=== PATIENT | male | born 1975 | race American Indian/Alaskan Native ===

== ENCOUNTER 2017-02-14 10:43 | Emergency (ER) | payer OTHER ==
[2017-02-14 12:24] VITALS: BP 147/95
--- NOTE | 2017-02-14 15:09 | Emergency Department Report ---
ED Lower Extremity HPI - General Chief Complaint: Extremity Injury, Lower Stated Complaint: BILAT KNEE, BACK PAIN, GENERAL SICKNESS Time Seen by Provider: 02/14/17 15:06 Source: patient Mode of arrival: Ambulatory Limitations: No Limitations - History of Present Illness MD Complaint: knee injury -: Sudden Type of Injury: blunt Place: home Severity: mild Improves With: nothing Worsens With: nothing Context: fall Associated Symptoms: other (pt reports being homeless and cold. ) - Related Data Allergies Allergy/AdvReac Type Severity Reaction Status Date / Time No Known Allergies Allergy Verified 12/21/14 22:28 ED Review of Systems ROS: Stated complaint: BILAT KNEE, BACK PAIN, GENERAL SICKNESS Other details as noted in HPI Comment: All other systems reviewed and negative Musculoskeletal: back pain, other (b knee pain) ED Past Medical Hx - Past Medical History Previous Medical History?: No - Surgical History Past Surgical History?: Yes Additional Surgical History: Right Knee repair, Left knee Arthoscopy - Social History Smoking Status: Current Every Day Smoker Substance Use Type: Alcohol, Cocaine, Marijuana ED Physical Exam - General Limitations: No Limitations General appearance: alert - Head Head exam: Present: atraumatic - Eye Eye exam: Present: PERRL - ENT ENT exam: Present: mucous membranes moist - Neck Neck exam: Present: normal inspection - Respiratory Respiratory exam: Present: normal lung sounds bilaterally - Cardiovascular Cardiovascular Exam: Present: regular rate - GI/Abdominal GI/Abdominal exam: Present: soft - Back Exam Back exam: Present: normal inspection, full ROM - Neurological Exam Neurological exam: Present: alert, oriented X3 - Psychiatric Psychiatric exam: Present: normal affect, normal mood - Skin Skin exam: Present: warm, dry, intact ED Course Vital Signs 02/14/17 12:21 Temperature 97.9 F Pulse Rate 95 H Blood Pressure 147/95 O2 Sat by Pulse 100 Oximetry - Reevaluation(s) Reevaluation #1: 02/14/17 15:53 to er prasad aragon today where he says he hurt his knees and lower back then he added he feels like he has the flu then added he is homeless and cold and has no where to go. he was found sleeping quietly in the fast track waiting room. vss nad non ill non toxic no fever ED Lower Extremity MDM - Radiology Data Radiology results: report reviewed, image reviewed - Medical Decision Making see note - Differential Diagnosis ro knee fx/ meniscus injury Critical care attestation.: If time is entered above; I have spent that time in minutes in the direct care of this critically ill patient, excluding procedure time. ED Disposition Clinical Impression: Knee pain Disposition: - TO HOME OR SELFCARE Is pt being admited?: No Does the pt Need Aspirin: No Condition: Stable Instructions: Arthralgia (ED) Additional Instructions: rest over the counter motrin or tylenol for pain hydrate well keep warm Referrals: PRIMARY MD ANAT [Primary Care Provider] - 3-5 Days YASMIN CAST MD [Staff Physician] - 3-5 Days [facility] [Outside] - 3-5 Days Time of Disposition: 15:49
--- NOTE | 2017-02-14 17:15 | XRay Report ---
FINAL REPORT EXAM: XR KNEE BILAT 3V HISTORY: pain sp fall TECHNIQUE: Bilateral knees two views left and two views right PRIORS: None. FINDINGS: No fracture is identified. No dislocation seen. No evidence of joint effusion. Patella demonstrates normal positioning. No acute bony abnormality identified. There are posterior soft tissue calcifications noted bilaterally IMPRESSION: No acute findings in the knees
== END 2017-02-14 17:16 | disposition home or self-care (01) ==
LOC: ED 10:43
DX: M25.561 Pain in right knee (principal); M25.562 Pain in left knee; F14.10 Cocaine abuse, uncomplicated; F12.10 Cannabis abuse, uncomplicated; F17.200 Nicotine dependence, unspecified, uncomplicated; Z98.890 Other specified postprocedural states
CPT/HCPCS: 99283

== ENCOUNTER 2017-02-15 01:15 | Emergency (ER) | payer OTHER ==
[2017-02-15 05:46] VITALS: BP 137/79
--- NOTE | 2017-02-15 11:15 | XRay Report ---
XRAY RIGHT FOOT THREE VIEWS: 02/15/17 01:15:00 CLINICAL: Right foot pain. FINDINGS: Hallux valgus deformity. No fracture or dislocation. Mild arthritis at the first MTP joint. No erosions. Normal soft tissues. IMPRESSION: Mild arthritis and hallux valgus deformity.
== END 2017-02-15 08:01 | disposition left against medical advice (07) ==
LOC: ED 01:15
DX: M79.671 Pain in right foot (principal); Z53.21 Procedure and treatment not carried out due to patient leaving prior to being seen by health care provider

== ENCOUNTER 2017-02-22 02:58 | Emergency (ER) | payer OTHER ==
[2017-02-22 04:09] VITALS: BP 129/93
--- NOTE | 2017-02-22 06:02 | Emergency Department Report ---
ED Lower Extremity HPI - General Chief Complaint: Extremity Injury, Lower Stated Complaint: RT FOOT PAIN Time Seen by Provider: 02/22/17 06:00 Source: patient Mode of arrival: Ambulatory Limitations: No Limitations - History of Present Illness Initial Comments: 41-year-old male past medical history schizophrenia, osteoarthritis feet, bunions presents with complaint of acute on chronic bilateral foot pain. Patient states he is homeless and stands and walks for prolonged periods of time. Patient states that his feet were aching which is why he came to the ED. Patient also states that it is cold outside due to weather and he was looking for a warm place to rest. Patient is awake alert and oriented 3 denies any trauma to feet and is ambulatory. Denies any fevers or chills. States he has not been taking any medicines for pain. States he was here for similar symptoms in both feet at the end of January MD Complaint: other (chronic bilateral foot pain) -: year(s) Injury: Foot: Right, Left Place: street/outdoors Severity: moderate Severity scale (0 -10): 4 Improves With: rest Context: walking Associated Symptoms: ambulatory - Related Data Previous Rx's Medication Instructions Recorded Last Taken Type Naproxen 500 mg PO BID PRN #30 tablet 02/22/17 Unknown Rx Allergies Allergy/AdvReac Type Severity Reaction Status Date / Time No Known Allergies Allergy Verified 12/21/14 22:28 ED Review of Systems ROS: Stated complaint: RT FOOT PAIN Other details as noted in HPI Constitutional: denies: chills, fever Eyes: denies: eye pain, eye discharge, vision change ENT: denies: ear pain, throat pain Respiratory: denies: cough, shortness of breath, wheezing Cardiovascular: denies: chest pain, palpitations Endocrine: no symptoms reported Gastrointestinal: denies: abdominal pain, nausea, diarrhea Genitourinary: denies: urgency, dysuria Musculoskeletal: as per HPI (hx fo chronic foot pain both feet). denies: back pain, joint swelling, arthralgia Skin: denies: rash, lesions Neurological: denies: headache, weakness, paresthesias Psychiatric: denies: anxiety, depression Hematological/Lymphatic: denies: easy bleeding, easy bruising ED Past Medical Hx - Past Medical History Hx Psychiatric Treatment: Yes (schizophrenia) Additional medical history: Bunions, Callous - Surgical History Additional Surgical History: Right Knee repair, Left knee Arthoscopy - Social History Smoking Status: Current Every Day Smoker - Medications Home Medications: Home Medications Medication Instructions Recorded Confirmed Last Taken Type Naproxen 500 mg PO BID PRN #30 tablet 02/22/17 Unknown Rx ED Physical Exam - General Limitations: No Limitations General appearance: alert, in no apparent distress - Head Head exam: Present: atraumatic, normocephalic - Eye Eye exam: Present: normal appearance, PERRL, EOMI - ENT ENT exam: Present: mucous membranes moist - Neck Neck exam: Present: normal inspection - Respiratory Respiratory exam: Present: normal lung sounds bilaterally. Absent: respiratory distress - Cardiovascular Cardiovascular Exam: Present: regular rate, normal rhythm. Absent: systolic murmur, diastolic murmur, rubs, gallop - GI/Abdominal GI/Abdominal exam: Present: soft, normal bowel sounds - Rectal Rectal exam: Present: deferred - Extremities Exam Extremities exam: Present: normal inspection, normal capillary refill (distal capillary refill toes on both feet fully intact, distal dorsalis pedis and posterior tibial pulses intact bilaterally. There are no signs of lower extremity infection cellulitis or erythema on clinical exam. Range of motion bilateral feet and ankles clinically intact. Patient is ambulatory without assistance.) - Back Exam Back exam: Present: normal inspection - Neurological Exam Neurological exam: Present: alert, oriented X3, CN II-XII intact, normal gait - Psychiatric Psychiatric exam: Present: normal affect, normal mood - Skin Skin exam: Present: warm, dry, intact, normal color. Absent: rash ED Course Vital Signs 02/22/17 04:03 Temperature 98.9 F Pulse Rate 82 Respiratory 19 Rate Blood Pressure 129/93 O2 Sat by Pulse 100 Oximetry ED Lower Extremity MDM - Medical Decision Making A/P: Chronic bilateral foot pain 1-patient is ambulatory no clinical signs of infection on inspection of both feet distal pulses and sensation intact bilaterally. No indication for acute imaging is patient is fully ambulatory 2-naproxen when necessary for pain 3-I gave patient information for primary care follow-up and also gave him a list of homeless shelters in the area [email or web address] Critical care attestation.: If time is entered above; I have spent that time in minutes in the direct care of this critically ill patient, excluding procedure time. ED Disposition Clinical Impression: Chronic foot pain Qualifiers: Laterality: unspecified laterality Qualified Code(s): M79.673 - Pain in unspecified foot; G89.29 - Other chronic pain; G89.29 - Other chronic pain Disposition: TO HOME OR SELFCARE Is pt being admited?: No Does the pt Need Aspirin: No Condition: Stable Instructions: Arthralgia (ED) Prescriptions: Naproxen 500 mg PO BID PRN #30 tablet PRN Reason: Pain Referrals: SABAS KRUSE MD [Primary Care Provider] - 3-5 Days Time of Disposition: 06:08
== END 2017-02-22 06:18 | disposition home or self-care (01) ==
LOC: ED 02:58
DX: M79.671 Pain in right foot (principal); M79.672 Pain in left foot; G89.29 Other chronic pain; F20.9 Schizophrenia, unspecified; Z59.0 Homelessness; F17.200 Nicotine dependence, unspecified, uncomplicated
CPT/HCPCS: 99282

== ENCOUNTER 2017-02-23 14:18 | Emergency (ER) | payer OTHER ==
[2017-02-23 15:22] LABS: Basophils % (Auto) 0.3 % (0.0-1.8); Eosinophils # (Auto) 0.1 K/mm3 (0.0-0.4); Hematocrit 46.5 % (35.5-45.6); Hemoglobin 15.6 gm/dl (11.8-15.2); Lymphocytes # (Auto) 0.3 K/mm3 (1.2-5.4); Lymphocytes % (Auto) 9.7 % (13.4-35.0); Mean Corpuscular HGB Conc 34 % (32-34); Mean Corpuscular Hemoglobin 30 pg (28-32); Mean Corpuscular Volume 90 fl (84-94); Monocytes # (Auto) 0.2 K/mm3 (0.0-0.8); Monocytes % (Auto) 7.2 % (0.0-7.3); Platelet Count 158 K/mm3 (140-440); Red Blood Count 5.16 M/mm3 (3.65-5.03); Red Cell Distribution Width 13.3 % (13.2-15.2)
[2017-02-23 15:42] LABS: Alanine Aminotransferase 21 units/L (7-56); Albumin 4.3 g/dL (3.9-5); BUN/Creatinine Ratio 11; Blood Urea Nitrogen 11 mg/dL (9-20); Calcium 9.2 mg/dL (8.4-10.2); Hemolysis Index 4
--- NOTE | 2017-02-23 15:47 | Cat Scan Report ---
FINAL REPORT EXAM: CT HEAD/BRAIN WO CON HISTORY: Double Vision TECHNIQUE: CT head without contrast PRIORS: None. FINDINGS: No acute intra-axial or extra-axial hemorrhage is identified. There is no evidence of midline shift or mass effect. The ventricles and sulci are within normal limits. Lamas-white matter differentiation is intact. No acute parenchymal abnormalities seen. Bony calvarium is grossly intact. Visualized portions of the mastoids and paranasal sinuses are unremarkable. IMPRESSION: Negative CT head
--- NOTE | 2017-02-23 16:11 | XRay Report ---
FINAL REPORT EXAM: XR CHEST ROUTINE 2V HISTORY: Chest Pain TECHNIQUE: Two view chest PA and lateral PRIORS: No prior studies available for comparison FINDINGS: Cardiac and mediastinal contours are unremarkable. No focal pulmonary infiltrate is identified. No pleural fluid collection seen. Pulmonary vasculature is unremarkable. IMPRESSION: Negative two-view chest
[2017-02-23 16:48] LABS: Benzodiazepines Screen,Urine PRESUMPTIVE NEGATIVE; Cocaine Screen,Urine PRESUMPTIVE NEGATIVE; Methadone Screen,Urine PRESUMPTIVE NEGATIVE; Opiate Screen,Urine PRESUMPTIVE NEGATIVE
[2017-02-23 16:54] LABS: Amphetamine Screen,Urine PRESUMPTIVE POSITIVE; Cannabinoid Screen,Urine PRESUMPTIVE POSITIVE
--- NOTE | 2017-02-23 22:36 | Emergency Department Report ---
Eye Injury/Foreign Body - HPI Duration: Today Eye Location: Bilateral Severity: Mild Eye Symptoms: Eye Pain: No, Blurred Vision: Yes (double vision), Eye Redness: No , Grinding/Hammering Metal: No, Used Eye Protection: No, Contact Lens Use: No, Recalls Injury: No, Photophobia: No Other History: Patient is a 41-year-old male who is presenting with double vision with blurriness. Patient states that he got a cigarette from someone else and after smoking the cigarette he started feeling weird. Patient states the vision started after this. He asked the person didn't the cigarette contain something other than tobacco and was told no. Patient does admit to marijuana use occasionally but states he has not used any other drugs. Patient is denying any chest pain shortness of breath nausea vomiting diarrhea at this time. Patient does states he has some chronic low back pain. He is complaining of this pain this is changed from previous back pain he's had the past. ED Review of Systems ROS: Stated complaint: ABDOMINAL PAIN/PROBLEM SEEING Other details as noted in HPI Comment: All other systems reviewed and negative ED Past Medical Hx - Past Medical History Previous Medical History?: No Hx Psychiatric Treatment: Yes (schizophrenia) Additional medical history: Bunions, Callous - Surgical History Past Surgical History?: Yes Hx Appendectomy: No Additional Surgical History: Right Knee repair, Left knee Arthoscopy - Social History Smoking Status: Current Every Day Smoker Substance Use Type: Alcohol, Marijuana - Medications Home Medications: Home Medications Medication Instructions Recorded Confirmed Last Taken Type Naproxen 500 mg PO BID PRN #30 tablet 02/22/17 Unknown Rx Eye Injury Exam - Exam General: Vital signs noted. No distress. Alert and acting appropriately. Cardiovascular: S1-S2 no murmurs gallops or rubs Respiratory: Lungs clear to auscultation bilaterally Abdomen: Abdomen soft nontender nondistended with normal bowel sounds General: Patient is alert and oriented 3 in no acute distress. Patient is still slow to respond to questions and does appear intoxicated - Visual Acuity Bilateral Vision Acuity Degree: 20/40 Eye Exam: Both Injection, Both EOMI, Neither Chemosis, Neither Abnormal Pupil ED Course Vital Signs 02/23/17 02/23/17 14:51 22:09 Temperature 98.5 F 98.1 F Pulse Rate 82 68 Respiratory 14 18 Rate Blood Pressure 130/89 135/87 Blood Pressure 130/89 [Right] O2 Sat by Pulse 100 98 Oximetry ED Medical Decision Making - Lab Data Result diagrams: 02/23/17 15:07 02/23/17 15:07 Lab Results 02/23/17 02/23/17 02/23/17 Range/Units 15:07 15:07 15:07 WBC 2.9 L (4.5-11.0) K/mm3 RBC 5.16 H (3.65-5.03) M/mm3 Hgb 15.6 H (11.8-15.2) gm/dl Hct 46.5 H (35.5-45.6) % MCV 90 (84-94) fl MCH 30 (28-32) pg MCHC 34 (32-34) % RDW 13.3 (13.2-15.2) % Plt Count 158 (140-440) K/mm3 Lymph % (Auto) 9.7 L (13.4-35.0) % [place] % (Auto) 7.2 (0.0-7.3) % Eos % (Auto) 2.0 (0.0-4.3) % Baso % (Auto) 0.3 (0.0-1.8) % Lymph # 0.3 L (1.2-5.4) K/mm3 [place] # 0.2 (0.0-0.8) K/mm3 Eos # 0.1 (0.0-0.4) K/mm3 Baso # 0.0 (0.0-0.1) K/mm3 Seg Neutrophils % 80.8 H (40.0-70.0) % Seg Neutrophils # 2.4 (1.8-7.7) K/mm3 Sodium 135 L (137-145) mmol/L Potassium 4.4 (3.6-5.0) mmol/L Chloride 95.1 L (98-107) mmol/L Carbon Dioxide 26 (22-30) mmol/L Anion Gap 18 mmol/L BUN 11 (9-20) mg/dL Creatinine 1.0 (0.8-1.5) mg/dL Estimated GFR > 60 ml/min BUN/Creatinine Ratio 11 % Glucose 81 (75-100) mg/dL Calcium 9.2 (8.4-10.2) mg/dL Total Bilirubin 0.70 (0.1-1.2) mg/dL AST 25 (5-40) units/L ALT 21 (7-56) units/L Alkaline Phosphatase 44 (35-129) units/L Total Protein 7.7 (6.3-8.2) g/dL Albumin 4.3 (3.9-5) g/dL Albumin/Globulin Ratio 1.3 % Urine Opiates Screen Urine Methadone Screen Ur Barbiturates Screen Ur Phencyclidine Scrn Ur Amphetamines Screen U Benzodiazepines Scrn Urine Cocaine Screen U Marijuana (THC) Screen Drugs of Abuse Note Plasma/Serum Alcohol < 0.01 (0-0.07) gm% 02/23/17 Range/Units 16:12 WBC (4.5-11.0) K/mm3 RBC (3.65-5.03) M/mm3 Hgb (11.8-15.2) gm/dl Hct (35.5-45.6) % MCV (84-94) fl MCH (28-32) pg MCHC (32-34) % RDW (13.2-15.2) % Plt Count (140-440) K/mm3 Lymph % (Auto) (13.4-35.0) % [place] % (Auto) (0.0-7.3) % Eos % (Auto) (0.0-4.3) % Baso % (Auto) (0.0-1.8) % Lymph # (1.2-5.4) K/mm3 [place] # (0.0-0.8) K/mm3 Eos # (0.0-0.4) K/mm3 Baso # (0.0-0.1) K/mm3 Seg Neutrophils % (40.0-70.0) % Seg Neutrophils # (1.8-7.7) K/mm3 Sodium (137-145) mmol/L Potassium (3.6-5.0) mmol/L Chloride (98-107) mmol/L Carbon Dioxide (22-30) mmol/L Anion Gap mmol/L BUN (9-20) mg/dL Creatinine (0.8-1.5) mg/dL Estimated GFR ml/min BUN/Creatinine Ratio % Glucose (75-100) mg/dL Calcium (8.4-10.2) mg/dL Total Bilirubin (0.1-1.2) mg/dL AST (5-40) units/L ALT (7-56) units/L Alkaline Phosphatase (35-129) units/L Total Protein (6.3-8.2) g/dL Albumin (3.9-5) g/dL Albumin/Globulin Ratio % Urine Opiates Screen Presumptive negative Urine Methadone Screen Presumptive negative Ur Barbiturates Screen Presumptive negative Ur Phencyclidine Scrn Presumptive negative Ur Amphetamines Screen Presumptive positive U Benzodiazepines Scrn Presumptive negative Urine Cocaine Screen Presumptive negative U Marijuana (THC) Screen Presumptive positive Drugs of Abuse Note Disclamer Plasma/Serum Alcohol (0-0.07) gm% - Medical Decision Making Patient is a 41-year-old male with a past medical history of schizophrenia who is presenting with blurry vision and not feeling normal. Patient did test positive for marijuana as well as amphetamines and this is most likely the cause of the patient's symptoms. Patient be given Xanax and will be discharged home Critical care attestation.: If time is entered above; I have spent that time in minutes in the direct care of this critically ill patient, excluding procedure time. ED Disposition Clinical Impression: Amphetamine adverse reaction Qualifiers: Encounter type: initial encounter Qualified Code(s): T43.625A - Adverse effect of amphetamines, initial encounter Disposition: DC-01 TO HOME OR SELFCARE Is pt being admited?: No Does the pt Need Aspirin: No Condition: Fair Referrals: PRIMARY CARE, [Primary Care Provider] - 3-5 Days
[2017-02-23] MEDS ORDERED: XANAX PO ONE (22:37)
[2017-02-23 23:04] VITALS: BP 120/76
== END 2017-02-23 23:19 | disposition home or self-care (01) ==
LOC: ED 14:18
DX: H53.8 Other visual disturbances (principal); H53.2 Diplopia; H57.13 Ocular pain, bilateral; T43.625A Adverse effect of amphetamines, initial encounter; F20.9 Schizophrenia, unspecified; F17.210 Nicotine dependence, cigarettes, uncomplicated; F12.10 Cannabis abuse, uncomplicated; Z79.899 Other long term (current) drug therapy; Y93.89 Activity, other specified; Y99.8 Other external cause status; Y92.89 Other specified places as the place of occurrence of the external cause
CPT/HCPCS: 36415; 70450; 71046; 80053; 80307; 85025; 99284; G0480; 80320

== ENCOUNTER 2017-02-25 08:09 | Emergency (ER) | payer SELFPAY ==
[2017-02-25 09:50] LABS: Bilirubin,Urine NEG (Negative); Blood,Urine NEG (Negative); Calcium Oxalate Crystals,Urine 3+; Color,Urine Yellow (Yellow); Mucus,Urine FEW /HPF; Nitrite,Urine NEG (Negative); Protein,Urine <15 mg/dL mg/dL (Negative)
[2017-02-25 10:19] LABS: Basophils % (Auto) 0.3 % (0.0-1.8); Eosinophils # (Auto) 0.1 K/mm3 (0.0-0.4); Eosinophils % (Auto) 1.8 % (0.0-4.3); Hematocrit 44.6 % (35.5-45.6); Lymphocytes # (Auto) 0.5 K/mm3 (1.2-5.4); Lymphocytes % (Auto) 11.8 % (13.4-35.0); Mean Corpuscular HGB Conc 34 % (32-34); Mean Corpuscular Hemoglobin 30 pg (28-32); Mean Corpuscular Volume 89 fl (84-94); Monocytes # (Auto) 0.4 K/mm3 (0.0-0.8); Monocytes % (Auto) 8.8 % (0.0-7.3); Platelet Count 168 K/mm3 (140-440); Red Cell Distribution Width 13.2 % (13.2-15.2)
[2017-02-25 10:35] LABS: Alanine Aminotransferase 23 units/L (7-56); Albumin 4.2 g/dL (3.9-5); BUN/Creatinine Ratio 10; Blood Urea Nitrogen 10 mg/dL (9-20); Calcium 9.1 mg/dL (8.4-10.2); Hemolysis Index 5
[2017-02-25 14:40] VITALS: BP 105/55
--- NOTE | 2017-02-25 14:56 | Emergency Department Report ---
ED N/V/D HPI - General Chief complaint: Nausea/Vomiting/Diarrhea Stated complaint: DIARRHEA Source: patient Mode of arrival: Ambulatory Limitations: No Limitations - History of Present Illness Initial comments: 41 y/o nontoxic in appearance homeless M presents with abdominal pain and flu- like symptoms. He has a PMHX of schizophrenia and has been seen here numerous times over the past 1 month. Pt reports to diarrhea and nausea for the past 2 days. He also reports to body aches, chills, and congestion. Pt has not tried anything for symptoms at this time. He reports to yellow stool, denies any blood in the stools or coughing up blood. He denies any chest pain, SOB, or fever. he states that he is still able to keep down food. He denies any frequency, urgency, or hematuria. NKDA. - Related Data Previous Rx's Medication Instructions Recorded Last Taken Type Naproxen 500 mg PO BID PRN #30 tablet 02/22/17 Unknown Rx Allergies Allergy/AdvReac Type Severity Reaction Status Date / Time No Known Allergies Allergy Verified 12/21/14 22:28 ED Review of Systems ROS: Stated complaint: DIARRHEA Other details as noted in HPI Constitutional: chills. denies: fever Eyes: denies: eye pain, eye discharge, vision change ENT: congestion. denies: ear pain, throat pain Respiratory: denies: cough, shortness of breath, wheezing Cardiovascular: denies: chest pain, palpitations Endocrine: no symptoms reported Gastrointestinal: abdominal pain, nausea, diarrhea. denies: vomiting Genitourinary: denies: urgency, dysuria Musculoskeletal: denies: back pain, joint swelling, arthralgia Skin: denies: rash, lesions Neurological: denies: headache, weakness, paresthesias Psychiatric: denies: anxiety, depression Hematological/Lymphatic: denies: easy bleeding, easy bruising ED Past Medical Hx - Past Medical History Previous Medical History?: Yes Hx Psychiatric Treatment: Yes (schizophrenia) Additional medical history: Bunions, Callous - Surgical History Past Surgical History?: Yes Hx Appendectomy: No Additional Surgical History: Right Knee repair, Left knee Arthoscopy - Social History Smoking Status: Current Every Day Smoker Substance Use Type: Alcohol, Non Opiate Pain, Other - Medications Home Medications: Home Medications Medication Instructions Recorded Confirmed Last Taken Type Naproxen 500 mg PO BID PRN #30 tablet 02/22/17 Unknown Rx ED Physical Exam - General Limitations: No Limitations General appearance: alert, in no apparent distress - Head Head exam: Present: atraumatic, normocephalic, normal inspection - Eye Eye exam: Present: normal appearance, PERRL, EOMI Pupils: Present: normal accommodation - ENT ENT exam: Present: normal exam, normal orophraynx, mucous membranes moist, normal external ear exam - Neck Neck exam: Present: normal inspection, full ROM, other (no signs of mengitis, able to flex and extend neck ) - Respiratory Respiratory exam: Present: normal lung sounds bilaterally. Absent: respiratory distress - Cardiovascular Cardiovascular Exam: Present: regular rate, normal rhythm. Absent: systolic murmur, diastolic murmur, rubs, gallop - GI/Abdominal GI/Abdominal exam: Present: soft, tenderness, normal bowel sounds, other (pt reports to tenderness in all 4 quadrants, negative psoas, obturator, kimball's and no TTP at the mcburney's point). Absent: distended, guarding, rebound, rigid, hyperactive bowel sounds, hypoactive bowel sounds, mass - Extremities Exam Extremities exam: Present: normal inspection, other (no swelling, sensation normal, pulses normal, poor hygeine of b/l feet- no signs of infection) - Back Exam Back exam: Present: normal inspection - Neurological Exam Neurological exam: Present: alert, oriented X3, normal gait - Expanded Neurological Exam Expanded Patient oriented to: Present: person, place, time Speech: Present: fluid speech Best Eye Response (Marcia): (4) open spontaneously Best Motor Response (Marcia): (6) obeys commands Best Verbal Response ([place]): (5) oriented [place] Total: 15 - Psychiatric Psychiatric exam: Present: other (mood appeared to fluctant from time to time during interview). Absent: homicidal ideation, suicidal ideation - Skin Skin exam: Present: warm, dry, intact, normal color. Absent: rash ED Course Vital Signs 02/25/17 02/25/17 08:36 14:31 Temperature 98.6 F Pulse Rate 96 H 69 Respiratory 20 16 Rate Blood Pressure 126/72 105/55 O2 Sat by Pulse 99 100 Oximetry ED Medical Decision Making - Lab Data Result diagrams: 02/25/17 10:00 02/25/17 10:00 - Medical Decision Making Basic bloodwork was conducted on the patient and was essentially unremarkable for any acute infection. Influenza was negative. Pt has been seen here numerous times over the past month. Pt is homeless and admits that part of the reason he keeps coming back is because it is cold outside and he needs a place to stay. I have consulted with Dr. Mo regarding this case, he has reviewed the lab work and agrees with plan of care at this time. Pt denies any suicidal or homicidal ideation at this time. He is a known psychiatric patient (schizophrenia). Pt was discharged here in stable condition, he is alert and oriented and in no resp distress at this time. He is speaking in full sentences. He was educated to see a PCP for chronic issues. Pt was educated on the BRAT diet and told to drink plenty of fluids to help with the diarrhea, educated that this is likely a viral origin. Critical care attestation.: If time is entered above; I have spent that time in minutes in the direct care of this critically ill patient, excluding procedure time. ED Disposition Clinical Impression: Gastroenteritis Disposition: DC-01 TO HOME OR SELFCARE Is pt being admited?: No Does the pt Need Aspirin: No Condition: Stable Instructions: Gastroenteritis (ED) Additional Instructions: Please eat a BRAT diet= bread, rice, apples, and toast. Please drink lots of fluids as water and pedialytes. Please follow-up with your PCP within 3-5 days. I am providing you with a referral to a specialist, follow-up with them within 1 week. Please return to the ER immediately if your presenting symptoms acutely progress or worsen. Referrals: PRIMARY MD ANAT [Primary Care Provider] - 3-5 Days [facility] [Outside] - 3-5 Days [facility] [Outside] - 3-5 Days PADMINI BARR MD [Staff Physician] - 3-5 Days Forms: Work/School Release Form(ED)
== END 2017-02-25 15:09 | disposition home or self-care (01) ==
LOC: ED 08:09
DX: K52.9 Noninfective gastroenteritis and colitis, unspecified (principal); Z59.0 Homelessness; F20.9 Schizophrenia, unspecified; F17.200 Nicotine dependence, unspecified, uncomplicated
CPT/HCPCS: 36415; 80053; 81001; 85025; 87400; 99283

== ENCOUNTER 2017-03-08 01:37 | Emergency (ER) | payer SELFPAY ==
[2017-03-08 02:22] VITALS: BP 150/90
--- NOTE | 2017-03-08 03:28 | XRay Report ---
FINAL REPORT PROCEDURE: XR KNEE BILAT 1-2V TECHNIQUE: Bilateral knee radiographs, AP and lateral views. HISTORY: BILAT KNEE PAIN POST FALL COMPARISON: No prior studies are available for comparison. FINDINGS: Fracture (s) and/or Dislocation(s): None . Joint space(s): Normal. Soft tissues: Normal. Bone mineralization: Normal. Foreign bodies: None. IMPRESSION: Normal bilateral knee radiographs
== END 2017-03-08 12:00 | disposition left against medical advice (07) ==
LOC: ED 01:37
DX: Z53.21 Procedure and treatment not carried out due to patient leaving prior to being seen by health care provider (principal)

== ENCOUNTER 2017-03-09 08:29 | Emergency (ER) | payer SELFPAY ==
[2017-03-09 09:28] VITALS: BP 135/91
== END 2017-03-09 22:20 | disposition left against medical advice (07) ==
LOC: ED 08:29
DX: Z53.21 Procedure and treatment not carried out due to patient leaving prior to being seen by health care provider (principal)

== ENCOUNTER 2017-03-27 23:49 | Emergency (ER) | payer SELFPAY | END 2017-03-28 | disposition left against medical advice (07) | LOC: ED 23:49 | DX: M79.671 Pain in right foot (principal); M79.672 Pain in left foot; Z53.21 Procedure and treatment not carried out due to patient leaving prior to being seen by health care provider ==

== ENCOUNTER 2017-03-28 17:19 | Emergency (ER) | payer SELFPAY ==
[2017-03-28 17:55] VITALS: BP 160/73
== END 2017-03-28 18:00 | disposition left against medical advice (07) ==
LOC: ED 17:19
DX: Z53.21 Procedure and treatment not carried out due to patient leaving prior to being seen by health care provider (principal)

== ENCOUNTER 2017-03-30 17:24 | Emergency (ER) | payer SELFPAY ==
--- NOTE | 2017-03-31 03:14 | XRay Report ---
FINAL REPORT PROCEDURE: XR FOOT BILAT 3+V TECHNIQUE: BILATERAL foot radiographs, including AP, lateral, and oblique views. HISTORY: b/l foot pain COMPARISON: No prior studies are available for comparison. FINDINGS: RIGHT FOOT: Fracture (s) and/or Dislocation(s): None. Alignment: Normal. 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 Soft tissues: Normal. Bone mineralization: Normal. Foreign bodies: None . Calcaneal spurring: None. LEFT FOOT: Fracture (s) and/or Dislocation(s): None. Alignment: Normal. 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 Soft tissues: Normal. Bone mineralization: Normal. Foreign bodies: None . Calcaneal spurring: None. IMPRESSION: There is no acute bony or soft tissue abnormality. There are degenerative changes of the 1st metatarsophalangeal joints bilaterally.
[2017-03-31] MEDS ORDERED: BOOSTRIX IM ONE (03:30)
--- NOTE | 2017-03-31 03:33 | Emergency Department Report ---
ED Extremity Problem HPI - General Chief complaint: Extremity Injury, Lower Stated complaint: BILATERAL FOOT PAIN Time Seen by Provider: 03/31/17 02:12 Source: patient Mode of arrival: Ambulatory Limitations: No Limitations - History of Present Illness Initial comments: 41-year-old male past medical history schizophrenia, undomiciled, chronic foot pain presents with complaint of chronic foot pain and odor. Patient states he stands for prolonged periods of time. Denies any new recent injuries. Patient is awake alert and oriented 3. Denies any fevers or chills. States both of his feet are aching. Denies any pus or blood drainage but states he has had some chronic sores in both of his feet on the dorsum aspect of both feet. Patient denies any loss of sensationSlightly odd affect but is fully lucid and conversant. MD Complaint: extremity pain Onset/Timin -: month(s) Location: bilateral lower extremity Quality: aching Consistency: intermittent Improves with: nothing Worsens with: weight bearing - Related Data Previous Rx's Medication Instructions Recorded Last Taken Type Naproxen 500 mg PO BID PRN #30 tablet 02/22/17 Unknown Rx Acetaminophen [Acetaminophen TAB] 500 mg PO Q6HR PRN #30 tablet 03/31/17 Unknown Rx Cephalexin [Keflex] 500 mg PO Q12HR #14 cap 03/31/17 Unknown Rx Menthol [Gold Patino Medicated Foot] 1 applicatio TP QDAY #1 powder 03/31/17 Unknown Rx Tolnaftate [Tinactin] 1 spray TP BID #1 aero.powd 03/31/17 Unknown Rx Allergies Allergy/AdvReac Type Severity Reaction Status Date / Time No Known Allergies Allergy Verified 12/21/14 22:28 ED Review of Systems ROS: Stated complaint: BILATERAL FOOT PAIN Other details as noted in HPI Constitutional: denies: chills, fever Eyes: denies: eye pain, eye discharge, vision change ENT: denies: ear pain, throat pain Respiratory: denies: cough, shortness of breath, wheezing Cardiovascular: denies: chest pain, palpitations Endocrine: no symptoms reported Gastrointestinal: denies: abdominal pain, nausea, diarrhea Genitourinary: denies: urgency, dysuria Musculoskeletal: as per HPI. denies: back pain, joint swelling, arthralgia Skin: denies: rash, lesions Neurological: denies: headache, weakness, paresthesias Psychiatric: denies: anxiety, depression Hematological/Lymphatic: denies: easy bleeding, easy bruising ED Past Medical Hx - Past Medical History Previous Medical History?: No Hx Psychiatric Treatment: Yes (schizophrenia) Additional medical history: Bunions, Callous - Surgical History Hx Appendectomy: No Additional Surgical History: Right Knee repair 20, Left knee Arthoscopy - Social History Smoking Status: Never Smoker - Medications Home Medications: Home Medications Medication Instructions Recorded Confirmed Last Taken Type Naproxen 500 mg PO BID PRN #30 tablet 02/22/17 Unknown Rx Acetaminophen [Acetaminophen TAB] 500 mg PO Q6HR PRN #30 tablet 03/31/17 Unknown Rx Cephalexin [Keflex] 500 mg PO Q12HR #14 cap 03/31/17 Unknown Rx Menthol [Gold Patino Medicated Foot] 1 applicatio TP QDAY #1 powder 03/31/17 Unknown Rx Tolnaftate [Tinactin] 1 spray TP BID #1 aero.powd 03/31/17 Unknown Rx ED Physical Exam - General Limitations: No Limitations General appearance: alert, in no apparent distress - Head Head exam: Present: atraumatic, normocephalic - Eye Eye exam: Present: normal appearance, PERRL, EOMI - ENT ENT exam: Present: mucous membranes moist - Neck Neck exam: Present: normal inspection - Respiratory Respiratory exam: Present: normal lung sounds bilaterally. Absent: respiratory distress - Cardiovascular Cardiovascular Exam: Present: regular rate, normal rhythm. Absent: systolic murmur, diastolic murmur, rubs, gallop - GI/Abdominal GI/Abdominal exam: Present: soft, normal bowel sounds - Rectal Rectal exam: Present: deferred - Extremities Exam Extremities exam: Present: normal inspection, full ROM, other (patient has visible chronic skin breakdown on both feet. Onychomycosis noted bilaterally. Some open chronic sores on dorsal aspect of both feet. Patient states they have been there for months to years. No palpable fluctuance no palpable erythema. Distal dorsalis pedis and posterior tibial pulses strong to palpation bilaterally. Patient has good distal sensation on plantar and dorsal aspects of both feet. yeast-like odor.) - Back Exam Back exam: Present: normal inspection - Neurological Exam Neurological exam: Present: alert, oriented X3, CN II-XII intact, normal gait - Psychiatric Psychiatric exam: Present: normal affect, normal mood - Skin Skin exam: Present: warm, dry, intact, normal color. Absent: rash ED Course Vital Signs 03/30/17 17:34 Temperature 98.7 F Pulse Rate 108 H Respiratory 16 Rate Blood Pressure 150/85 O2 Sat by Pulse 98 Oximetry ED Medical Decision Making - Medical Decision Making A/P: Tinea pedis, trench foot bilaterally, bunions 1-follow-up with podiatry 2-examine the patient with Dr. Abdalla 3-topical antifungals and cold on foot powder. I advised the patient to change his socks frequently. 4- as patient does have some chronic open sores and is complaining of bilateral foot pain I discussed this with Dr. Abdalla. Will cover patient empirically with course of Keflex to mitigate any skin infection on feet. I emphasized the importance of keeping his feet dry and changing his socks often. Critical care attestation.: If time is entered above; I have spent that time in minutes in the direct care of this critically ill patient, excluding procedure time. ED Disposition Clinical Impression: Tinea pedis Qualifiers: Laterality: bilateral Qualified Code(s): B35.3 - Tinea pedis Chronic foot pain Qualifiers: Laterality: unspecified laterality Qualified Code(s): M79.673 - Pain in unspecified foot; G89.29 - Other chronic pain; G89.29 - Other chronic pain Disposition: - TO HOME OR SELFCARE Is pt being admited?: No Does the pt Need Aspirin: No Condition: Stable Instructions: Tinea Pedis (ED) Prescriptions: Acetaminophen [Acetaminophen TAB] 500 mg PO Q6HR PRN #30 tablet PRN Reason: Pain Cephalexin [Keflex] 500 mg PO Q12HR #14 cap Menthol [Gold Patino Medicated Foot] 1 applicatio TP QDAY #1 powder Tolnaftate [Tinactin] 1 spray TP BID #1 aero.powd Referrals: RAN LI DPM [Staff Physician] - 3-[address] [facility] [Provider Group] - 3-5 Days [facility] [Outside] - 3-5 Days Time of Disposition: 03:35
[2017-03-31 04:08] VITALS: BP 125/87
== END 2017-03-31 04:09 | disposition home or self-care (01) ==
LOC: ED 17:24
DX: B35.3 Tinea pedis (principal); G89.29 Other chronic pain; M79.672 Pain in left foot; M79.671 Pain in right foot; F20.9 Schizophrenia, unspecified
CPT/HCPCS: 90471; 90715; 99283

== ENCOUNTER 2017-03-31 09:45 | Emergency (ER) | payer SELFPAY ==
[2017-03-31 10:02] VITALS: BP 103/72
== END 2017-03-31 10:30 | disposition left against medical advice (07) ==
LOC: ED 09:45
DX: Z53.21 Procedure and treatment not carried out due to patient leaving prior to being seen by health care provider (principal)

== ENCOUNTER 2017-06-16 06:34 | Emergency (ER) | payer SELFPAY ==
[2017-06-16 08:12] VITALS: BP 130/79
[2017-06-16] MEDS ORDERED: MOTRIN PO ONE (11:51)
--- NOTE | 2017-06-16 11:51 | Emergency Department Report ---
ED Extremity Problem HPI - General Chief complaint: Extremity Injury, Lower Stated complaint: KNEE PAIN Time Seen by Provider: 06/16/17 11:26 Source: patient Mode of arrival: Ambulatory Limitations: No Limitations - History of Present Illness Initial comments: Patient is a 41-year-old Male who is presenting with right knee pain. Patient states she has a remote injury to his meniscus and a week ago was playing basketball and came down on his knee and has had some increased pain since. Patient states that he did not fall on his knees been bearing weight for last several days since the injury but he states that there is some swelling and pain is too much to bear at home. Patient's taken Tylenol which had no relief relief. The patient states he feels like his knee is weak and wants to give out. Severity scale (0 -10): 6 Consistency: constant - Related Data Previous Rx's Medication Instructions Recorded Last Taken Type Naproxen 500 mg PO BID PRN #30 tablet 02/22/17 Unknown Rx Acetaminophen [Acetaminophen TAB] 500 mg PO Q6HR PRN #30 tablet 03/31/17 Unknown Rx Cephalexin [Keflex] 500 mg PO Q12HR #14 cap 03/31/17 Unknown Rx Menthol [Gold Patino Medicated Foot] 1 applicatio TP QDAY #1 powder 03/31/17 Unknown Rx Tolnaftate [Tinactin] 1 spray TP BID #1 aero.powd 03/31/17 Unknown Rx Ibuprofen [Motrin] 800 mg PO Q8HR PRN #20 tablet 06/16/17 Unknown Rx traMADol [Ultram] 50 mg PO Q6HR PRN #10 tablet 06/16/17 Unknown Rx Allergies Allergy/AdvReac Type Severity Reaction Status Date / Time Penicillins Allergy Unknown Verified 06/16/17 08:10 ED Review of Systems ROS: Stated complaint: KNEE PAIN Other details as noted in HPI Comment: All other systems reviewed and negative ED Past Medical Hx - Past Medical History Hx Psychiatric Treatment: Yes (schizophrenia) Additional medical history: Bunions, Callous - Surgical History Hx Appendectomy: No Additional Surgical History: Right Knee repair 20, Left knee Arthoscopy - Social History Smoking Status: Current Every Day Smoker Substance Use Type: Alcohol, Marijuana - Medications Home Medications: Home Medications Medication Instructions Recorded Confirmed Last Taken Type Naproxen 500 mg PO BID PRN #30 tablet 01/06/18 Unknown Rx Acetaminophen [Acetaminophen TAB] 500 mg PO Q6HR PRN #30 tablet 03/31/17 Unknown Rx Cephalexin [Keflex] 500 mg PO Q12HR #14 cap 03/31/17 Unknown Rx Menthol [Gold Patino Medicated Foot] 1 applicatio TP QDAY #1 powder 03/31/17 Unknown Rx Tolnaftate [Tinactin] 1 spray TP BID #1 aero.powd 03/31/17 Unknown Rx Ibuprofen [Motrin] 800 mg PO Q8HR PRN #20 tablet 06/16/17 Unknown Rx traMADol [Ultram] 50 mg PO Q6HR PRN #10 tablet 06/16/17 Unknown Rx ED Physical Exam - General Limitations: No Limitations General appearance: alert, in no apparent distress - Head Head exam: Present: atraumatic, normocephalic - Eye Eye exam: Present: normal appearance - ENT ENT exam: Present: mucous membranes moist - Neck Neck exam: Present: normal inspection - Respiratory Respiratory exam: Present: normal lung sounds bilaterally. Absent: respiratory distress, wheezes, rales, rhonchi - Cardiovascular Cardiovascular Exam: Present: regular rate, normal rhythm. Absent: systolic murmur, diastolic murmur, rubs, gallop - GI/Abdominal GI/Abdominal exam: Present: soft, normal bowel sounds - Rectal Rectal exam: Present: deferred - Extremities Exam Extremities exam: Present: full ROM, joint swelling (some [id number] right knee effusion is present.) - Back Exam Back exam: Present: normal inspection - Neurological Exam Neurological exam: Present: alert, oriented X3 - Psychiatric Psychiatric exam: Present: normal affect, normal mood - Skin Skin exam: Present: warm, dry, intact, normal color. Absent: rash ED Course Vital Signs 06/16/17 08:10 Temperature 98.6 F Pulse Rate 79 Respiratory 16 Rate Blood Pressure 130/79 O2 Sat by Pulse 98 Oximetry ED Medical Decision Making - Medical Decision Making Patient is a 41-year-old -Welsh male who is presenting with some knee swelling. Patient does not meet criteria for x-rays at this time. Patient be referred to orthopedics and was given instructions on rice therapy. Patient also be given something for pain as well. Critical care attestation.: If time is entered above; I have spent that time in minutes in the direct care of this critically ill patient, excluding procedure time. ED Disposition Clinical Impression: Knee effusion Qualifiers: Laterality: right Qualified Code(s): M25.461 - Effusion, right knee Disposition: TO HOME OR SELFCARE Is pt being admited?: No Does the pt Need Aspirin: No Condition: Stable Instructions: Knee Effusion (ED) Referrals: SHERRY TIRADO MD [Staff Physician] - 3-5 Days
== END 2017-06-16 12:02 | disposition home or self-care (01) ==
LOC: ED 06:34
DX: M25.461 Effusion, right knee (principal); F20.9 Schizophrenia, unspecified; F17.200 Nicotine dependence, unspecified, uncomplicated; F12.10 Cannabis abuse, uncomplicated; Z88.0 Allergy status to penicillin
CPT/HCPCS: 99282

== ENCOUNTER 2017-06-20 15:38 | Emergency (ER) | payer SELFPAY ==
--- NOTE | 2017-06-20 17:01 | Emergency Department Report ---
Chief Complaint: Skin/Abscess/Foreign Body Stated Complaint: LEFT SHOULDER PAIN Time Seen by Provider: 06/20/17 16:54 - HPI History of Present Illness: 41-year-old AA male presents the emergency department with the complaint of pain to the left upper back and posterior shoulder. Patient says that all of a sudden last night he heard a "pop" and began having pain. He himself has not seen anything on his back but says that other people saw some type of lesion and said that maybe he was bit by a spider. He denies any significant past medical history. He has not taken anything for her symptoms prior to presentation. - ROS Review of Systems: Positive for left upper back and shoulder pain, skin lesion Negative for fever, N/V. - Exam Vital Signs: Vital Signs 06/20/17 16:00 Temperature 97.6 F Pulse Rate 92 H Respiratory 18 Rate Blood Pressure 153/105 O2 Sat by Pulse 95 Oximetry Physical Exam: Patient has a abscess to the left upper back that is about 4 cm in diameter. Some of it appears fluctuant while other areas appear more indurated. There is a little bit of a eschar at the 6 o'clock position where there may have previously been in opening and/or drainage. There is some surrounding erythema concerning for some cellulitic changes. MSE screening note: Focused history and physical exam performed. Due to findings the following was ordered: The patient will need an I&D. No blood work necessary at this time. ED Disposition for MSE Condition: Stable
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
[2017-06-20] MEDS ORDERED: XYLOCAINE 2% INFILTRATI ONE (17:34)
[2017-06-20 19:27] VITALS: BP 142/98
== END 2017-06-20 19:45 | disposition home or self-care (01) ==
LOC: ED 15:38
DX: L02.212 Cutaneous abscess of back [any part, except buttock and flank] (principal)

== ENCOUNTER 2017-06-24 10:59 | Emergency (ER) | payer SELFPAY ==
[2017-06-24 11:20] VITALS: BP 110/83
[2017-06-24] MEDS ORDERED: CLEOCIN IM ONE (13:10)
--- NOTE | 2017-06-24 13:12 | Emergency Department Report ---
ED Recheck HPI - General Chief Complaint: Skin/Abscess/Foreign Body Stated Complaint: PACKING REMOVAL Time Seen by Provider: 06/24/17 13:04 Source: patient Mode of arrival: Ambulatory Limitations: No Limitations - History of Present Illness Initial Comments: This is a 41-year-old male nontoxic, well nourished in appearance, no acute signs of distress presents to the ED for packing removal status post incision and drainage that occurred 4 days ago in the left back region. Patient had an I /D 4 days ago and a one fourth packing has been placed. Patient stated that swelling has decreased and subsided. Patient stated he did not get any antibiotics due to no money. Patient denies any fever, chills, nausea, vomiting , headache or stiff neck, chest pain or shortness of breath. Patient stated allergies to PCN. MD Complaint: wound re-check -: days(s) (4) Initial Visit For: abscess Returns Today for: wound recheck Symptoms Since Prior Visit: no new symptoms Context: planned re-check Associated Symptoms: none. denies: fever, chills, chest pain, shortness of breath, rash, malaise, nasuea, abdominal pain - Related Data Previous Rx's Medication Instructions Recorded Last Taken Type Naproxen 500 mg PO BID PRN #30 tablet 02/22/17 Unknown Rx Acetaminophen [Acetaminophen TAB] 500 mg PO Q6HR PRN #30 tablet 03/31/17 Unknown Rx Cephalexin [Keflex] 500 mg PO Q12HR #14 cap 03/31/17 Unknown Rx Menthol [Gold Patino Medicated Foot] 1 applicatio TP QDAY #1 powder 03/31/17 Unknown Rx Tolnaftate [Tinactin] 1 spray TP BID #1 aero.powd 03/31/17 Unknown Rx Ibuprofen [Motrin] 800 mg PO Q8HR PRN #20 tablet 06/16/17 Unknown Rx traMADol [Ultram] 50 mg PO Q6HR PRN #10 tablet 06/16/17 Unknown Rx Acetaminophen/Codeine [Tylenol 1 tab PO Q6H PRN #20 tab 06/20/17 Unknown Rx /Codeine # 3 tab] Sulfamethoxazole/Trimethoprim 1 each PO BID 10 Days #20 tablet 06/20/17 Unknown Rx [Bactrim DS TAB] Clindamycin [Clindamycin CAP] 300 mg PO Q8H 7 Days cap 06/24/17 Unknown Rx Allergies Allergy/AdvReac Type Severity Reaction Status Date / Time Penicillins Allergy Unknown Verified 06/20/17 16:00 ED Review of Systems ROS: Stated complaint: PACKING REMOVAL Other details as noted in HPI Constitutional: denies: chills, fever Eyes: denies: eye pain, eye discharge, vision change ENT: denies: ear pain, throat pain Respiratory: denies: cough, shortness of breath, wheezing Cardiovascular: denies: chest pain, palpitations Endocrine: no symptoms reported Gastrointestinal: denies: abdominal pain, nausea, diarrhea Genitourinary: denies: urgency, dysuria Musculoskeletal: denies: back pain, joint swelling, arthralgia Skin: denies: rash, lesions Neurological: denies: headache, weakness, paresthesias Psychiatric: denies: anxiety, depression Hematological/Lymphatic: denies: easy bleeding, easy bruising ED Past Medical Hx - Past Medical History Hx Psychiatric Treatment: Yes (schizo-effective) Additional medical history: Bunions, Callous - Surgical History Hx Appendectomy: No Additional Surgical History: Right Knee repair 20, Left knee Arthoscopy - Social History Smoking Status: Former Smoker Substance Use Type: None - Medications Home Medications: Home Medications Medication Instructions Recorded Confirmed Last Taken Type Naproxen 500 mg PO BID PRN #30 tablet 02/22/17 Unknown Rx Acetaminophen [Acetaminophen TAB] 500 mg PO Q6HR PRN #30 tablet 03/31/17 Unknown Rx Cephalexin [Keflex] 500 mg PO Q12HR #14 cap 03/31/17 Unknown Rx Menthol [Gold Patino Medicated Foot] 1 applicatio TP QDAY #1 powder 03/31/17 Unknown Rx Tolnaftate [Tinactin] 1 spray TP BID #1 aero.powd 03/31/17 Unknown Rx Ibuprofen [Motrin] 800 mg PO Q8HR PRN #20 tablet 06/16/17 Unknown Rx traMADol [Ultram] 50 mg PO Q6HR PRN #10 tablet 06/16/17 Unknown Rx Acetaminophen/Codeine [Tylenol 1 tab PO Q6H PRN #20 tab 06/20/17 Unknown Rx /Codeine # 3 tab] Sulfamethoxazole/Trimethoprim 1 each PO BID 10 Days #20 tablet 06/20/17 Unknown Rx [Bactrim DS TAB] Clindamycin [Clindamycin CAP] 300 mg PO Q8H 7 Days cap 06/24/17 Unknown Rx ED Physical Exam - General Limitations: No Limitations General appearance: alert, in no apparent distress - Head Head exam: Present: atraumatic, normocephalic - Eye Eye exam: Present: normal appearance Pupils: Present: normal accommodation - ENT ENT exam: Present: normal exam, mucous membranes moist - Neck Neck exam: Present: normal inspection, full ROM - Respiratory Respiratory exam: Present: normal lung sounds bilaterally. Absent: respiratory distress - Cardiovascular Cardiovascular Exam: Present: regular rate, normal rhythm. Absent: systolic murmur, diastolic murmur, rubs, gallop - GI/Abdominal GI/Abdominal exam: Present: soft, normal bowel sounds - Rectal Rectal exam: Present: deferred - Extremities Exam Extremities exam: Present: normal inspection, full ROM, normal capillary refill - Back Exam Back exam: Present: normal inspection, full ROM, tenderness, other (open wound with slight drainage present still. No swelling noted.). Absent: CVA tenderness (R), CVA tenderness (L), muscle spasm, paraspinal tenderness, vertebral tenderness, rash noted - Neurological Exam Neurological exam: Present: alert, oriented X3, normal gait - Psychiatric Psychiatric exam: Present: normal affect, normal mood - Skin Skin exam: Present: warm, dry, intact, normal color. Absent: rash ED Course Vital Signs 06/24/17 11:16 Temperature 98.7 F Pulse Rate 95 H Respiratory 18 Rate Blood Pressure 110/83 O2 Sat by Pulse 98 Oximetry - Reevaluation(s) Reevaluation #1: 06/24/17 13:14 Patient is speaking in full sentences with no signs of distress noted. ED Recheck MDM - Medical Decision Making / packing removed from left back. Patient tolerated well. Positive pus and draianige. No swelling noted. Due to patient stating that he did not take any antibiotics and does not have any money patient received clindamycin 900 mg IM in the ED and I gave patient a good RX prescription card and gave a prescription for clindamycin and stated to him that it will cost him about $13 with this card. Patient stated that he will fill the prescription. Sterile dressing has been applied. Patient was instructed to continue taking antibiotics. Patient was educated on proper wound care. At time of discharge, the patient does not seem toxic or ill in appearance. No acute signs of distress noted. Patient agrees to discharge treatment plan of care. No further questions noted by the patient. Critical care attestation.: If time is entered above; I have spent that time in minutes in the direct care of this critically ill patient, excluding procedure time. ED Disposition Clinical Impression: Abscess packing removal Disposition: DC-01 TO HOME OR SELFCARE Is pt being admited?: No Does the pt Need Aspirin: No Condition: Stable Instructions: Clindamycin (By mouth) Additional Instructions: Follow-up with a primary care doctor in 3-5 days or if symptoms worsen and continue return to emergency room as soon as possible. Prescriptions: Clindamycin [Clindamycin CAP] 300 mg PO Q8H 7 Days cap Referrals: PRIMARY MD ANAT [Primary Care Provider] - 3-5 Days FRANCI VILLALOBOS MD [Staff Physician] - 3-5 Days [facility] [Outside] - 3-5 Days [facility] [Outside] - 3-5 Days Forms: Work/School Release Form(ED)
== END 2017-06-24 13:37 | disposition home or self-care (01) ==
LOC: ED 10:59
DX: L02.212 Cutaneous abscess of back [any part, except buttock and flank] (principal); Z87.891 Personal history of nicotine dependence; Z88.0 Allergy status to penicillin
CPT/HCPCS: 96372; 99282

== ENCOUNTER 2017-06-26 03:51 | Emergency (ER) | payer SELFPAY ==
[2017-06-26 04:14] VITALS: BP 122/83
--- NOTE | 2017-06-26 07:45 | Emergency Department Report ---
ED Lower Extremity HPI - General Chief Complaint: Extremity Injury, Lower Stated Complaint: RT KNEE PAIN Time Seen by Provider: 06/26/17 07:21 Source: patient Mode of arrival: Ambulatory Limitations: No Limitations - History of Present Illness Initial Comments: Patient here reports that he reinjured his right knee a week ago playing basketball and he reports he has an abscess on his back that is beginning to ro Report knee pain not getting better. Patient said he is here to get a dressing change. Patient was here on 06/20/2017 for abscess to his left upper back where it was drained and he was placed on Bactrim ibuprofen and Tylenol 3. He then returned on 06/25/1910/06/2017 for packing removal where he was placed on clindamycin. Should milligrams every 8 hours for 7 days. Patient said that he is here for recheck and also for right knee pain and swelling. Pain to right knee is 8 out of 10 worse with movement better with rest and he said he hasn't taken any medication. Patient has been noncompliant with antibiotic for is wound after incision and drainage. Denies any fever or chills. Denies any nausea or vomiting. Denies any back pain.. She denies a history of right knee surgery with arthroscopy in the past. MD Complaint: knee injury (right knee pain), other (left upper back wound follow -up) Onset/Timin -: week(s) Injury: Knee: Right (pain after injury) Type of Injury: other (in basketball) Place: street/outdoors Severity: severe Severity scale (0 -10): 8 Improves With: NSAID, rest Worsens With: weight bearing, movement, palpation Context: jumping Other Symptoms: other (patient with open wound to left upper back) Associated Symptoms: swelling, able to partially bear weight. denies: snap/pop sensation, numbness, tingling Treatments Prior to Arrival: NSAIDS, spinal immobilization - Related Data Previous Rx's Medication Instructions Recorded Last Taken Type Naproxen 500 mg PO BID PRN #30 tablet 02/22/17 Unknown Rx Acetaminophen [Acetaminophen TAB] 500 mg PO Q6HR PRN #30 tablet 03/31/17 Unknown Rx Cephalexin [Keflex] 500 mg PO Q12HR #14 cap 03/31/17 Unknown Rx Menthol [Gold Patino Medicated Foot] 1 applicatio TP QDAY #1 powder 03/31/17 Unknown Rx Tolnaftate [Tinactin] 1 spray TP BID #1 aero.powd 03/31/17 Unknown Rx traMADol [Ultram] 50 mg PO Q6HR PRN #10 tablet 06/16/17 Unknown Rx Acetaminophen/Codeine [Tylenol 1 tab PO Q6H PRN #20 tab 06/20/17 Unknown Rx /Codeine # 3 tab] Clindamycin [Clindamycin CAP] 300 mg PO Q8H 7 Days cap 06/24/17 Unknown Rx Ibuprofen [Motrin 800 MG tab] 800 mg PO Q8HR PRN #12 tablet 06/26/17 Unknown Rx Sulfamethoxazole/Trimethoprim 1 each PO BID 10 Days #20 tablet 06/26/17 Unknown Rx [Bactrim DS TAB] Allergies Allergy/AdvReac Type Severity Reaction Status Date / Time Penicillins Allergy Unknown Verified 06/20/17 16:00 ED Review of Systems ROS: Stated complaint: RT KNEE PAIN Other details as noted in HPI Comment: All other systems reviewed and negative Constitutional: denies: chills, fever Eyes: denies: eye pain Respiratory: denies: cough, shortness of breath, SOB with exertion, SOB at rest , wheezing Cardiovascular: denies: chest pain, palpitations, edema, syncope Endocrine: no symptoms reported Gastrointestinal: denies: abdominal pain, nausea, vomiting Genitourinary: denies: urgency, dysuria Musculoskeletal: joint swelling, arthralgia. denies: back pain, myalgia Skin: other (open wound to left upper back). denies: rash, lesions Neurological: denies: headache, weakness, numbness, paresthesias, abnormal gait , vertigo ED Past Medical Hx - Past Medical History Previous Medical History?: Yes Hx Psychiatric Treatment: Yes (schizo-effective) Additional medical history: Bunions, Callous - Surgical History Past Surgical History?: Yes Hx Appendectomy: No Additional Surgical History: Right Knee repair 2004, Left knee Arthoscopy - Family History Family history: hypertension - Social History Smoking Status: Current Every Day Smoker Substance Use Type: Alcohol - Medications Home Medications: Home Medications Medication Instructions Recorded Confirmed Last Taken Type Naproxen 500 mg PO BID PRN #30 tablet 02/22/17 Unknown Rx Acetaminophen [Acetaminophen TAB] 500 mg PO Q6HR PRN #30 tablet 03/31/17 Unknown Rx Cephalexin [Keflex] 500 mg PO Q12HR #14 cap 03/31/17 Unknown Rx Menthol [Gold Patino Medicated Foot] 1 applicatio TP QDAY #1 powder 03/31/17 Unknown Rx Tolnaftate [Tinactin] 1 spray TP BID #1 aero.powd 03/31/17 Unknown Rx traMADol [Ultram] 50 mg PO Q6HR PRN #10 tablet 06/16/17 Unknown Rx Acetaminophen/Codeine [Tylenol 1 tab PO Q6H PRN #20 tab 06/20/17 Unknown Rx /Codeine # 3 tab] Clindamycin [Clindamycin CAP] 300 mg PO Q8H 7 Days cap 06/24/17 Unknown Rx Ibuprofen [Motrin 800 MG tab] 800 mg PO Q8HR PRN #12 tablet 06/26/17 Unknown Rx Sulfamethoxazole/Trimethoprim 1 each PO BID 10 Days #20 tablet 06/26/17 Unknown Rx [Bactrim DS TAB] ED Physical Exam - General Limitations: No Limitations General appearance: alert, in no apparent distress - Head Head exam: Present: atraumatic, normocephalic, normal inspection - Eye Eye exam: Present: normal appearance, PERRL, EOMI, scleral icterus, conjunctival injection Pupils: Present: normal accommodation - ENT ENT exam: Present: normal exam, normal orophraynx, mucous membranes moist - Neck Neck exam: Present: normal inspection, full ROM. Absent: tenderness, lymphadenopathy - Respiratory Respiratory exam: Present: normal lung sounds bilaterally. Absent: respiratory distress - Cardiovascular Cardiovascular Exam: Present: regular rate, normal rhythm, normal heart sounds. Absent: systolic murmur, diastolic murmur - GI/Abdominal GI/Abdominal exam: Present: soft, normal bowel sounds. Absent: tenderness - Extremities Exam Extremities exam: Present: normal inspection, full ROM (patient with full range of motion to right knee but he has pain with flexion and extension but is able to fully extend his right knee), tenderness (right knee anteriorly), normal capillary refill, joint swelling (right knee), other (no clubbing, cyanosis or edema. +2 pulses in all extremities and no neurovascular compromise.). Absent : pedal edema, calf tenderness - Expanded Lower Extremity Exam Right Hip exam: Present: normal inspection, full ROM, pelvic stability. Absent: tenderness, swelling, abrasion, laceration, ecchymosis, deformity, crepidus, dislocation, erythema, external rotation, internal rotation, shortening Upper Leg exam: Present: normal inspection, full ROM. Absent: tenderness, swelling, abrasion, laceration, ecchymosis, deformity, crepidus, dislocation, erythema Knee exam: Present: normal inspection, full ROM (full range of motion with pain with flexion and extension), tenderness (anterior right knee), swelling (mild swelling anterior right knee), full knee extension. Absent: abrasion, laceration, ecchymosis, deformity, crepidus, dislocation, erythema, effusion, pain w/ pronation/supination, posterior draw sign, pain/laxity with valgus, pain /laxity with varus Lower Leg exam: Present: normal inspection, full ROM. Absent: tenderness, swelling, abrasion, laceration, ecchymosis, deformity, crepidus, dislocation, erythema, palpable cord, Miky's sign Ankle exam: Present: normal inspection, full ROM. Absent: tenderness, swelling , abrasion, laceration, ecchymosis, deformity, crepidus, dislocation, erythema, anterior draw sign Foot/Toe exam: Present: normal inspection, full ROM. Absent: tenderness, swelling, abrasion, laceration, ecchymosis, deformity, crepidus, dislocation, erythema, amputation, puncture wound, foreign body, calcaneal tenderness, tenderness at base of 5th metatarsal, nail avulsion, subungual hematoma Neuro vascular tendon exam: Present: no vascular compromise. Absent: pulse deficit, abnormal cap refill, motor deficit, sensory deficit, tendon deficit, extremity cold to touch, pallor, abnormal 2-point discrimination, decreased fine /light touch, foot drop, peroneal nerve deficit, significant pain with passive ROM of distal joint Gait: Positive: observed and limited by pain - Back Exam Back exam: Present: normal inspection, full ROM, tenderness (tender to palpate left upper back at wound site), other (ambulates without any difficulties). Absent: CVA tenderness (R), CVA tenderness (L), muscle spasm, paraspinal tenderness, vertebral tenderness, rash noted - Neurological Exam Neurological exam: Present: alert, oriented X3, normal gait, reflexes normal. Absent: motor sensory deficit - Psychiatric Psychiatric exam: Present: normal affect, normal mood - Skin Skin exam: Present: warm, dry, normal color, other (patient will open wound to left upper back). Absent: erythema - Expanded Skin Exam Expanded Type of lesion: Present: other (open wound of her back from previous incision and drainage) Distribution of rash: back (left upper back) Description of rash: Present: size (2 x 2 centimeter), tenderness, erythematous (minimal erythema), other (wound bed well vascularized with no drainage.). Absent: swelling, discharge, indurated 1 - Left upper back with open wound from previous abscess that was incision and drained. Tetanus vaccine up-to-date. No induration with mild erythema surrounding the wound. Wound is approximately 2 x 2 centimeter. ED Course Vital Signs 06/26/17 04:07 Temperature 98.4 F Pulse Rate 83 Respiratory 18 Rate Blood Pressure 122/83 O2 Sat by Pulse 98 Oximetry - Reevaluation(s) Reevaluation #1: 06/26/17 08:34 Patient received Bactrim DS one tablet in the emergency room and wound care with normal saline and Neosporin ointment followed by sterile dry dressing. See procedure note for splint. Right knee - Orthopedic Splinting/Casting Injury #1 Side: right Lower Extremity Injury Location: knee Lower Extremity Immobilizer: Thony wrap Additional Comments: good color, movement, temperature and sensation to extremities. ED Lower Extremity MDM - Medical Decision Making ED course: Patient here with chronic knee pain that he said flared up after he reinjured it playing basketball about a week ago. Physical finances for full range of motion to right knee with tenderness palpated anterior knee. Patient has a history of knee surgery. He has minimal swelling to his right knee. There is no need for x-rays today. Denies ever ambulates without any restriction in his right knee. Patient is also complaining of left upper back wound that he needs dressing change. He was here about a week ago and had incision and drainage of abscess to left upper back and return and had packing removed. 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 Patient was given prescription for antibiotic and to occasion and he did not get antibiotics filled. I discussed with him that he needs to get his antibiotic fell and started on a today. Wound care done in emergency room and dry dressing placed inside. Patient and was placed back on Bactrim DS and I told him he needs to go to public this morning to get his prescription filled as this medication is free at [facility]. Patient given Bactrim DS 1 tablet prior to leaving the emergency room. I referred him to [facility] for follow-up visit and I discussed with him that if wound becomes worse then he needs to return to emergency room otherwise to follow up with primary care and also a wound care center which she was given a referral to. Patient with cellulitis, acute wound and knee pain. Discharged home with prescription for Bactrim and Motrin. Also smoking cessation encouraged Critical care attestation.: If time is entered above; I have spent that time in minutes in the direct care of this critically ill patient, excluding procedure time. ED Disposition Clinical Impression: Knee pain, right anterior, Swelling of right knee joint, Cellulitis of back Open wound of back without complication Qualifiers: Encounter type: initial encounter Laterality: left Qualified Code(s): S21.202A - Unspecified open wound of left back wall of thorax without penetration into thoracic cavity, initial encounter Disposition: DC-01 TO HOME OR SELFCARE Is pt being admited?: No Does the pt Need Aspirin: No Condition: Stable Instructions: Wound Infection (ED), Acute Wound Care (ED), Wound Healing and Your Diet (ED), Knee Pain (ED), Knee Exercises (GEN) Additional Instructions: Please follow up with [facility] for primary care. Follow-up with Dr. Flores for orthopedic care regarding chronic right knee pain and injuries. Follow-up Will wound care center as instructed. You were here twice and had incision and drainage and follow-up for packing removal and your prescribed antibiotic and to different occasion and You did not take her antibioticYouhave cellulitis to open wound and your left upper back and he will need to get your prescription for antibiotics filled today at [facility] as it is free at [facility]. If you do not take antibiotic for infected wounds you can develop an infection a blood and this could be lead to critical issues towards you health and this could also spread to years spine. Please clean affected area according to acute wound care instructions. Prescriptions: Ibuprofen [Motrin 800 MG tab] 800 mg PO Q8HR PRN #12 tablet PRN Reason: Pain Sulfamethoxazole/Trimethoprim [Bactrim DS TAB] 1 each PO BID 10 Days #20 tablet Referrals: [facility] [Outside] - 06/30/17 [facility] [Outside] - 3-5 Days SHERRY FLORES MD [Staff Physician] - 06/30/17
[2017-06-26] MEDS ORDERED: TRIPLE ANTIBIOTIC TP ONE (08:21)
[2017-06-26] MEDS ORDERED: BACTRIM DS PO SCH (10:00)
== END 2017-06-26 09:15 | disposition home or self-care (01) ==
LOC: ED 03:51
DX: S21.202A Unspecified open wound of left back wall of thorax without penetration into thoracic cavity, initial encounter (principal); M25.561 Pain in right knee; L03.312 Cellulitis of back [any part except buttock and flank]; F17.200 Nicotine dependence, unspecified, uncomplicated; Z88.0 Allergy status to penicillin; X58.XXXA Exposure to other specified factors, initial encounter; Y93.89 Activity, other specified; Y92.89 Other specified places as the place of occurrence of the external cause; Y99.8 Other external cause status
CPT/HCPCS: 99283; A6250

== ENCOUNTER 2017-07-05 09:15 | Emergency (ER) | payer SELFPAY ==
[2017-07-05 10:05] VITALS: BP 115/82
--- NOTE | 2017-07-05 15:01 | Emergency Department Report ---
HPI - General Chief Complaint: Psych Time Seen by Provider: 07/05/17 10:34 - HPI HPI: The patient is a 41-year-old male who presents for evaluation of mental health. The patient reports constant and moderate in severity sadness for the past one day, exacerbated with alcohol use. The patient denies fever, headache, unexplained weight loss or weight gain, heat or cold intolerance, skin, hair, or nail changes, neuro deficits, suicidal ideations, homicidal ideations, or auditory or visual hallucinations. 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, Callous - Surgical History Hx Appendectomy: No Additional Surgical History: Right Knee repair 2004, Left knee Arthoscopy - Social History Smoking Status: Current Every Day Smoker Substance Use Type: Alcohol, Marijuana, Methamphetamines - Medications Home Medications: Home Medications Medication Instructions Recorded Confirmed Last Taken Type Naproxen 500 mg PO BID PRN #30 tablet 02/22/17 Unknown Rx Acetaminophen [Acetaminophen TAB] 500 mg PO Q6HR PRN #30 tablet 03/31/17 Unknown Rx Cephalexin [Keflex] 500 mg PO Q12HR #14 cap 03/31/17 Unknown Rx Menthol [Gold [place] Medicated Foot] 1 applicatio TP QDAY #1 powder 03/31/17 Unknown Rx Tolnaftate [Tinactin] 1 spray TP BID #1 aero.powd 03/31/17 Unknown Rx traMADol [Ultram] 50 mg PO Q6HR PRN #10 tablet 06/16/17 Unknown Rx Acetaminophen/Codeine [Tylenol 1 tab PO Q6H PRN #20 tab 06/20/17 Unknown Rx /Codeine # 3 tab] Clindamycin [Clindamycin CAP] 300 mg PO Q8H 7 Days cap 06/24/17 Unknown Rx Ibuprofen [Motrin 800 MG tab] 800 mg PO Q8HR PRN #12 tablet 06/26/17 Unknown Rx Sulfamethoxazole/Trimethoprim 1 each PO BID 10 Days #20 tablet 06/26/17 Unknown Rx [Bactrim DS TAB] ED Review of Systems ROS: Stated complaint: MENTAL HEALTH EVALUATION Other details as noted in HPI Constitutional: denies: fever ENT: denies: throat or neck pain Respiratory: denies: cough, shortness of breath Cardiovascular: denies: chest pain Endocrine: denies unexplained weight loss or gain Gastrointestinal: denies: abdominal pain, nausea Genitourinary: denies: dysuria Musculoskeletal: denies: leg swelling Skin: denies: rash Neurological: denies: headache Hematological/Lymphatic: denies: easy bleeding or easy bruising Psych: reports sadness or hopelessness Physical Exam - Physical Exam Vital Signs: Vital Signs 07/05/17 07/05/17 09:46 10:23 Temperature 98.2 F Pulse Rate 83 Respiratory 18 16 Rate Blood Pressure 115/82 Blood Pressure 115/82 [Right] O2 Sat by Pulse 100 Oximetry Physical Exam: General: well-nourished, well-developed, no acute distress Head: Normocephalic, atraumatic Eyes: normal sclera ENT: Mucous membranes are pink and moist Neck: trachea midline, neck supple, No neck stiffness, no cervical adenopathy Respiratory: Breath sounds equal bilaterally, no wheezing, rales, or rhonchi Cardio: S1 and S2 present, no murmurs, rubs, gallops, capillary refill is brisk Abdomen: Normoactive bowel sounds, soft abdomen, no rigidity, no guarding or rebound tenderness Chest WALL/Back: No tenderness to palpation of the chest wall, no CVA tenderness with percussion Musc: No pitting edema Skin: No rash Neuro: no facial drooping, normal speech Psych: flat affect, depressed mood, normal insight, normal behavior, normal cognition, no suicidal or homicidal ideation ED Course Vital Signs 07/05/17 07/05/17 09:46 10:23 Temperature 98.2 F Pulse Rate 83 Respiratory 18 16 Rate Blood Pressure 115/82 Blood Pressure 115/82 [Right] O2 Sat by Pulse 100 Oximetry ED Medical Decision Making - Medical Decision Making The patient was seen and examined by myself. The patient is placed on a monitor worker and continuous pulse ox. On initial evaluation, the patient was found to be in no distress. Labs and a mental health evaluation were ordered. As the patient is negative for signs concerning for risk of harm to himself, others, or for acute psychosis, the patient does not meet criteria for 1013. The patient eloped prior to receiving lab draw or mental health evaluation. Critical care attestation.: If time is entered above; I have spent that time in minutes in the direct care of this critically ill patient, excluding procedure time. ED Disposition Clinical Impression: Depression Qualifiers: Depression Type: unspecified Qualified Code(s): F32.9 - Major depressive disorder, single episode, unspecified Disposition: ELOPED Is pt being admited?: No Does the pt Need Aspirin: No Condition: Stable Referrals: PRIMARY CARE, [Primary Care Provider] - 3-5 Days Time of Disposition: 13:00
== END 2017-07-05 13:15 | disposition left against medical advice (07) ==
LOC: ED 09:15
DX: F32.9 Major depressive disorder, single episode, unspecified (principal); F20.9 Schizophrenia, unspecified; F17.200 Nicotine dependence, unspecified, uncomplicated
CPT/HCPCS: 99281